=== PATIENT | male | born 1950 | race Caucasian/White ===

== ENCOUNTER 2018-08-28 21:43 | Emergency (ER) | payer OTHER ==
[~2018-08-28] VITALS: Wt 108.9 kg
[~2018-08-28 21:43] MED LIST: DAYPRO600 M1 PO; FEXOFENADINE HC60 MG PO; FLOVENT DI50 MCG/ACT IH; HYTONE 2.5% LOT.2 OZ PO; IBUPROFEN600 MG PO; LAMISIL AT11 TP; LOPERAMIDE2 MG PO; OMEPRAZOLE20 MG PO; OPTIVE OP; POVIDONE; ROBAXIN750 MG PO; SIMVASTATIN40 MG PO; TRAZODONE100 MG PO; VICODIN 5/500 505 MG PO; VICODIN 500 MG-1 TAB PO; ZINC OXIDE 20% TP
== END 2018-08-28 23:30 | disposition home or self-care (01) ==
LOC: ED 21:43
DX: K91.841 Postprocedural hemorrhage of a digestive system organ or structure following other procedure (principal); Z88.8 Allergy status to other drugs, medicaments and biological substances; Z79.899 Other long term (current) drug therapy; Z98.818 Other dental procedure status